=== PATIENT | female | born 1940 | race Caucasian/White ===

== ENCOUNTER 2018-03-08 09:00 | Observation (INO) | payer OTHER ==
--- NOTE | 2018-03-08 09:31 | PDOC ---
History of Present Illness - General Chief Complaint: Palpitations Stated Complaint: PALPITATIONS & BELCHING History Source: Patient Exam Limitations: No Limitations - History of Present Illness Initial Comments: 03/08/18 09:49 78-year-old female history of hypertension hyperlipidemia presents today complaining of palpitations. Patient states she has had intermittent episodes where she feels her heart is racing. She has noticed recently some exertional shortness of breath when walking uphill however denies any chest pain or feeling shortness of breath while walking on flat surfaces are going upstairs. Unsure if she has had any previous stress test states she had seen a zone supervisor firearms over 5 years ago. Denies any current chest pain no leg swelling no leg edema no history of PE or DVT no recent travel denies any fevers chills cough states she is not having the symptoms at this moment. She did take a full aspirin prior to arrival which seems to alleviate her symptoms. Does have a family history of heart disease in a brother who had a mI in his 40s Past History - Past Medical History Allergies/Adverse Reactions: Allergies Allergy/AdvReac Type Severity Reaction Status Date / Time No Known Allergies Allergy Verified 03/08/18 09:12 Home Medications: Ambulatory Orders Aspirin [ASA -] 325 mg PO ONCE 03/08/18 Ezetimibe/Simvastatin [Vytorin 10-20 mg Tablet] 1 each PO DAILY 03/08/18 Lisinopril [Zestril] 40 mg PO DAILY 03/08/18 COPD: No HTN: Yes Hypercholesterolemia: Yes - Suicide/Smoking/Psychosocial Hx Smoking History: Never smoked Have you smoked in the past 12 months: No Information on smoking cessation initiated: No Hx Alcohol Use: No Substance Use Type: None Review of Systems - Review of Systems Constitutional: Yes: Malaise. No: Diaphoresis HEENTM: No: Eye Pain, Blurred Vision, Ear Pain Respiratory: Yes: Shortness of Breath. No: Orthopnea Cardiac (ROS): Yes: Palpitations Musculoskeletal: No: Back Pain, Joint Swelling, Muscle Pain, Muscle Weakness, Joint Stiffness All Other Systems: Reviewed and Negative *Physical Exam - Vital Signs Last Vital Signs Temp Pulse Resp BP Pulse Ox 98.2 F 66 19 137/81 97 03/08/18 09:10 03/08/18 11:30 03/08/18 11:30 03/08/18 11:30 03/08/18 11:30 - Physical Exam General Appearance: Yes: Appropriately Dressed Respiratory/Chest: positive: Lungs Clear, Normal Breath Sounds Cardiovascular: positive: Regular Rhythm, Regular Rate, S1, S2, Murmur ( systolic murmur 2/6) Gastrointestinal/Abdominal: positive: Flat, Soft. negative: Normal Bowel Sounds , Tender Musculoskeletal: positive: Normal Inspection. negative: CVA Tenderness Extremity: positive: Normal Inspection, Normal Range of Motion. 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) Heart Score/ECG Review #1 ECG reviewed & interpreted by me at: 09:31 General ECG Interpretation: Sinus Rhythm, Normal Rate (73), Normal Intervals, No acute ischemic changes ED Treatment Course - LABORATORY CBC & Chemistry Diagram: 03/08/18 09:50 03/08/18 09:50 - ADDITIONAL ORDERS Additional order review: Laboratory Results 03/08/18 03/08/18 09:50 09:50 Sodium 135 L Potassium 4.2 Chloride 104 Carbon Dioxide 23 Anion Gap 8 BUN 22 H Creatinine 0.8 Creat Clearance w eGFR > 60 Random Glucose 104 Calcium 9.4 Total Bilirubin 0.9 AST 31 ALT 27 Alkaline Phosphatase 60 Troponin I < 0.03 Total Protein 7.3 Albumin 4.3 03/08/18 09:50 RBC 4.53 MCV 87.8 MCHC 33.2 RDW 12.7 MPV 9.9 Neutrophils % 65.0 Lymphocytes % 24.9 Monocytes % 6.2 Eosinophils % 2.7 Basophils % 1.2 - RADIOLOGY Radiology Studies Ordered: Category Date Time Status CHEST PA & LAT [RAD] Stat Radiology 03/08/18 09:35 Completed Medical Decision Making - Medical Decision Making 03/08/18 10:15 78-year-old female with palpitations and generalized feeling not well. Differential diagnos irhythmia, anemia, electrolyte abnormality, atypical ACS, hyper or hypothyroid. plan: EKG, chest x-ray,CBCCMP troponin telemetry monitoring Patient took aspirin prior to arrival we'll try to contact her zone supervisor firearms Dr. Jacques will consider admission for observation and dysrhythmia due to the patient's risk factors 03/08/18 10:46 Labs unremarkable, troponin negative, chest x-ray unremarkable. EKG is normal due to the patient's risk factors for heart disease will admit the patient for telemetry observation further cardiac workup and rule out ACS 03/08/18 10:[address] aparicio [phone] dr jacques [phone] *DC/Admit/Observation/Transfer Diagnosis at time of Disposition: Palpitations - Discharge Dispostion Condition at time of disposition: Good Decision to Admit order: Yes Decision to Admit order Date/Time: Decision to Admit Order Category Date Time Status Decision to Admit to Hospital Routine Admission 03/08/18 10:51 Active - Referrals Referrals: Ricardo Aparicio [Primary Care Provider] - - Patient Instructions - Post Discharge Activity
[2018-03-08 09:35] VITALS: BMI 30.7
[2018-03-08 10:15] LABS: BASO % 1.2 % (0-2.0); EOS % 2.7 % (0-4.5); HEMATOCRIT 39.7 % (32.4-45.2); HEMOGLOBIN 13.2 GM/dl (10.7-15.3); LYMPH % 24.9 % (8-40); MCH 29.1 pg (25.7-33.7); MCHC 33.2 g/dl (32.0-36.0); MEAN CELL VOLUME 87.8 fl (80-96); MEAN PLT VOLUME 9.9 fl (7.5-11.1); MONO % 6.2 % (3.8-10.2); PLATELET COUNT 207 K/MM3 (134-434); RBC 4.53 M/mm3 (3.60-5.2); RDW 12.7 % (11.6-15.6); WHITE BLOOD COUNT 6.2 K/mm3 (4.0-10.8)
[2018-03-08 10:24] LABS: ALBUMIN 4.3 g/dl (3.5-5.0); ALK PHOS 60 U/L (32-92); ANION GAP 8 MMOL/L (8-16); BILIRUBIN,TOTAL 0.9 mg/dl (0.2-1.0); BLOOD UREA NITROGEN 22 mg/dl (7-18); CALCIUM 9.4 mg/dl (8.4-10.2); CHLORIDE 104 mmol/L (98-107); CO2 23 mmol/L (22-28); CREATININE 0.8 mg/dl (0.6-1.3); GLUCOSE,RANDOM 104 mg/dl (74-106); POTASSIUM 4.2 mmol/L (3.5-5.1); SGOT/AST 31 U/L (10-42); SGPT/ALT 27 U/L (10-40); SODIUM 135 mmol/L (136-145); TOT PROT 7.3 g/dl (6.4-8.3)
--- NOTE | 2018-03-08 12:10 | HP ---
CHIEF COMPLAINT: Palpitations PCP: Dr. Ricardo Aparicio Cardiology: Dr. Lopez, Anais Gannon HISTORY OF PRESENT ILLNESS: 78 year-old female with a PMH significant for HTN and HLD, presented to the ED with a complaint of palpitations. Patient was watching television in bed early this morning and when she rolled over she began experiencing palpitations and a feeling of anxiety. There was no associated pain, SOB, sweating, or dizziness. The palpitations lasted for about fifteen minutes. She took an aspirin and immediately felt better. Patient advised ED provider she has had some exertional SOB recently, but she denies this at the time of admission. She last had an episode of palpitations three years ago and she had a cardiac workup with Dr. Lopez which was reportedly negative. Patient denies orthopnea, PND, lower extremity edema. ER course was notable for: (1) First troponin neg (2) ECG: not suggestive of acute ischemic event (3) CXR: unremarkable Recent Travel: No PAST MEDICAL HISTORY: Hypertension Hyperlipidemia PAST SURGICAL HISTORY: Right cataract surgery Social History: Smoking: quit 40 years ago Alcohol: no Drugs: no Family History: Father 60 stomach cancer; mother 69 pancreatic cancer ; brother 41 [place]; one brother epilepsy; one brother a&w Allergies No Known Allergies Allergy (Verified 03/08/18 09:12) HOME MEDICATIONS: Home Medications Medication Instructions Recorded Aspirin [ASA -] 325 mg PO ONCE 03/08/18 Ezetimibe/Simvastatin [Vytorin 1 each PO DAILY 03/08/18 10-20 mg Tablet] Lisinopril [Zestril] 40 mg PO DAILY 03/08/18 REVIEW OF SYSTEMS CONSTITUTIONAL: Absent: fever, chills, diaphoresis, generalized weakness, malaise, loss of appetite, weight change HEENT: Absent: rhinorrhea, nasal congestion, throat pain, throat swelling, difficulty swallowing, mouth swelling, ear pain, eye pain, visual changes CARDIOVASCULAR: Absent: chest pain, syncope, palpitations, irregular heart rate, lightheadedness , peripheral edema RESPIRATORY: Absent: cough, shortness of breath, dyspnea with exertion, orthopnea, wheezing, stridor, hemoptysis GASTROINTESTINAL: Absent: abdominal pain, abdominal distension, nausea, vomiting, diarrhea, constipation, melena, hematochezia GENITOURINARY: Absent: dysuria, frequency, urgency, hesitancy, hematuria, flank pain, genital pain MUSCULOSKELETAL: Absent: myalgia, arthralgia, joint swelling, back pain, neck pain SKIN: Absent: rash, itching, pallor HEMATOLOGIC/IMMUNOLOGIC: Absent: easy bleeding, easy bruising, lymphadenopathy, frequent infections ENDOCRINE: Absent: unexplained weight gain, unexplained weight loss, heat intolerance, cold intolerance NEUROLOGIC: Absent: headache, focal weakness or paresthesias, dizziness, unsteady gait, seizure, mental status changes, bladder or bowel incontinence PSYCHIATRIC: Absent: anxiety, depression, suicidal or homicidal ideation, hallucinations. PHYSICAL EXAMINATION Vital Signs Temperature 97.6 F 03/08/18 12:51 Pulse Rate 70 03/08/18 12:51 Respiratory Rate 18 03/08/18 12:51 Blood Pressure 139/90 03/08/18 12:51 O2 Sat by Pulse Oximetry (%) 97 03/08/18 11:30 GENERAL: Awake, alert, and fully oriented, in no acute distress. LUNGS: Breath sounds equal, clear to auscultation bilaterally. No wheezes, and no crackles. No accessory muscle use. HEART: Regular rate and rhythm, +murmur ABDOMEN: Soft, nontender, not distended MUSCULOSKELETAL: Normal range of motion at all joints. No bony deformities or tenderness. No CVA tenderness. UPPER EXTREMITIES: 2+ pulses, warm, well-perfused. No cyanosis. No clubbing. No peripheral edema. LOWER EXTREMITIES: 2+ pulses, warm, well-perfused. No calf tenderness. No peripheral edema. NEUROLOGICAL: Cranial nerves II-XII intact. Normal speech. Laboratory Results - last 24 hr 03/08/18 03/08/18 03/08/18 09:50 09:50 09:50 WBC 6.2 RBC 4.53 Hgb 13.2 Hct 39.7 MCV 87.8 MCH 29.1 MCHC 33.2 RDW 12.7 Plt Count 207 MPV 9.9 Absolute Neuts (auto) 3.9 Neutrophils % 65.0 Lymphocytes % 24.9 Monocytes % 6.2 Eosinophils % 2.7 Basophils % 1.2 Sodium 135 L Potassium 4.2 Chloride 104 Carbon Dioxide 23 Anion Gap 8 BUN 22 H Creatinine 0.8 Creat Clearance w eGFR > 60 Random Glucose 104 Calcium 9.4 Total Bilirubin 0.9 AST 31 ALT 27 Alkaline Phosphatase 60 Troponin I < 0.03 Total Protein 7.3 Albumin 4.3 ASSESSMENT/PLAN 78 year-old female with a PMH significant for HTN and HLD, with a family history of a brother who at age 41 of [place]. Placed on observation for palpitations. Palpitations --initial ECG sinus rhythm --continuous telemetry monitoring --troponins negative x 2, third pending --CXR unremarkable --03/08 Echo: LV hyperdynamic; RV normal; mild to moderate to severe TR; at least moderate , AV area could not be estimated --cardiology consult Hypertension --BP stable --continue lisinopril Hyperlipidemia --continue statin FEN Fluids: PO intake adequate Electrolytes: replete as indicated Nutrition: low sodium; NPO after midnight in case of stress test tomorrow DVT prophylaxis: subq heparin Dispo: continues to require inpatient care. Full code. Visit type - Emergency Visit Emergency Visit: Yes ED Registration Date: 03/08/18 Care time: The patient presented to the Emergency Department on the above date and was hospitalized for further evaluation of their emergent condition. - New Patient This patient is new to me today: Yes Date on this admission: 03/08/18 - Critical Care Critical Care patient: No Hospitalist Screening - Colonoscopy Questionnaire Colonoscopy Questionnaire: Colonoscopy Questionnaire - Patient: 50 - 75 years old and never had a screening colonoscopy: No History of colon or rectal polyps, or CA: No History of IBD, Crohn's disease or UC: No History of abdominal radiation therapy as a child: No - Relative: 1 with colon or rectal CA, or polyps at age 60 or younger: Unknown Colon or rectal CA diagnosed at age 45 or younger: Unknown Multiple relatives with colon or rectal CA: Unknown - Outcome: Screening Result: Negative Screen
[2018-03-08 12:16] LABS: N-TERMINAL BNP 108.35 pg/ml (5-450)
--- NOTE | 2018-03-08 15:41 | ECHO ---
Name: TEREZA MCKEON Exam:Adult Echocardiogram Study Date: 03/08/2018 11:51 AM Age: 78 yrs Reason For Study: PALPITATIONS Height: 62 in Weight: 168 lb BSA: 1.8 m2 MMode/2D Measurements & Calculations IVSd: 0.94 cm Ao root diam: 2.5 cm LVIDd: 4.5 cm LA dimension: 3.3 cm LVIDs: 1.9 cm LVPWd: 0.91 cm EDV(Teich): 94.5 ml LVOT diam: 2.0 cm ESV(Teich): 11.8 ml Doppler Measurements & Calculations MV E max olga: 83.4 cm/sec MVA(VTI): 2.5 cm2 MV A max olga: 128.4 cm/sec MV V2 max: 135.0 cm/sec MV E/A: 0.65 MV max P.3 mmHg MV V2 mean: 77.8 cm/sec MV mean P.8 mmHg MV V2 VTI: 35.4 cm Ao V2 max: 320.3 cm/sec LV V1 max P.9 mmHg Ao max P.1 mmHg LV V1 mean P.9 mmHg Ao V2 mean: 241.9 cm/sec LV V1 max: 121.0 cm/sec Ao mean P.0 mmHg LV V1 mean: 77.4 cm/sec Ao V2 VTI: 76.2 cm LV V1 VTI: 28.2 cm MOMO(I,D): 1.2 cm2 MOMO(V,D): 1.2 cm2 SV(LVOT): 89.2 ml TR max olga: 217.9 cm/sec TR max P.0 mmHg Procedure The study was technically adequate with some images being suboptimal in quality. Left Ventricle Upper septal hypertrophy (sigmoid septum), normal variant. The left ventricle is normal in size. The left ventricle is hyperdynamic. No regional wall motion abnormalities noted. Right Ventricle The right ventricle is normal in size and function. Atria The left atrial size is normal. Mitral Valve There is severe mitral annular calcification. There is mild mitral valve thickening. No significant m itral valve stenosis. There is no mitral regurgitation noted. Tricuspid Valve The tricuspid valve is not well visualized, but is grossly normal. The tricuspid regurgitant jet is eccentrically directed. TR appears at least mild to moderate vs moderate in severity; may be underest imated. There was insufficient TR detected to calculate RV systolic pressure. Aortic Valve There is severe aortic valve thickening. Aortic valve leaflet mobility appears at least moderately re stricted. At least moderate aortic stenosis present. Peak and mean gradients are 35 and 20 mmHg. AV area could not be estimated by continuity equation, due to incomplete doppler recording in the LVOT, and short axis suyapa nimetry tracing was not technically feasible, though the valve appears possibly severe stenosed in short axis images. No aortic regurgitation is present. Pulmonic Valve The pulmonic valve is not well visualized. There is no pulmonic valvular regurgitation. Great Vessels The aortic root is normal size. Normal IVC size and contractility. Pericardium/Pleura There is no pericardial effusion. Interpretation Summary TR appears at least mild to moderate vs moderate in severity; may be underestimated. Aortic valve leaflet mobility appears at least moderately restricted. The study was technically adequate with some images being suboptimal in quality. The left ventricle is hyperdynamic. No regional wall motion abnormalities noted. The right ventricle is normal in size and function. The tricuspid regurgitant jet is eccentrically directed. There was insufficient TR detected to calculate RV systolic pressure. There is severe aortic valve thickening. At least moderate aortic stenosis present. Peak and mean gradients are 35 and 20 mmHg. AV area could not be estimated by continuity equation, due to incomplete doppler recording in the LVOT, and short axis suyapa nimetry tracing was not technically feasible, though the valve appears possibly severe stenosed in short axis images. MD Yifan Lane 03/08/2018 03:41 PM
--- NOTE | 2018-03-08 15:57 | EKG ---
Test Reason : Blood Pressure : / mmHG Vent. Rate : 073 BPM Atrial Rate : 073 BPM P-R Int : 168 ms QRS Dur : 096 ms QT Int : 392 ms P-R-T Axes : 063 -05 055 degrees QTc Int : 431 ms NORMAL SINUS RHYTHM NORMAL ECG WHEN COMPARED WITH ECG OF 27-OCT-1999 18:09, NO SIGNIFICANT CHANGE WAS FOUND Confirmed by Stephanie Nguyễn ([id number]) on 03/08/2018 3:57:44 PM Referred By: KONSTANTIN MULLIGAN Confirmed By:Stephanie Nguyễn
--- NOTE | 2018-03-08 17:23 | CON.CARD ---
Consult Consult Specialty:: Cardiology Reason for Consultation:: palpitations - History of Present Illness Chief Complaint: palpitations History of Present Illness: 78F h/o HTN, HLD p/w palpitations. [place] anxious, racing heart. no chest pain, short of breath, nausea, dizzy, lightheaded, edema. Palpitations lasted 15 min , felt better with aspirin. Had prior episode 3 years ago wit cardiac workup that was reportedly negative, credit support specialist Dr. Lopez. Trop neg x2, CXR and EKG unremarkable. Echo showed hyperdynamic LV, at least moderate , unable to calculate AV area. Of note patient had been told for at least two years that she had a murmur. - History Source History Provided By: Patient Limitations to Obtaining History: No Limitations - Past Medical History Cardio/Vascular: Yes: HTN, Hyperlipdemia - Alcohol/Substance Use Hx Alcohol Use: No - Smoking History Smoking history: Never smoked Have you smoked in the past 12 months: No Home Medications - Allergies Allergies/Adverse Reactions: Allergies Allergy/AdvReac Type Severity Reaction Status Date / Time No Known Allergies Allergy Verified 03/08/18 09:12 - Home Medications Home Medications: Ambulatory Orders Aspirin [ASA -] 325 mg PO ONCE 03/08/18 Ezetimibe/Simvastatin [Vytorin 10-20 mg Tablet] 1 each PO DAILY 03/08/18 Lisinopril [Zestril] 40 mg PO DAILY 03/08/18 Family Disease History - Family Disease History Family History: Unremarkable Review of Systems - Review of Systems Constitutional: reports: No Symptoms Eyes: reports: No Symptoms HENT: reports: No Symptoms Neck: reports: No Symptoms Cardiovascular: reports: Palpitations Respiratory: reports: No Symptoms Gastrointestinal: reports: No Symptoms Genitourinary: reports: No Symptoms Musculoskeletal: reports: No Symptoms Integumentary: reports: No Symptoms Neurological: reports: No Symptoms Endocrine: reports: No Symptoms Hematology/Lymphatic: reports: No Symptoms Psychiatric: reports: Anxiety Vital Signs: Vital Signs Temperature 97.6 F 03/08/18 12:51 Pulse Rate 70 03/08/18 12:51 Respiratory Rate 18 03/08/18 12:51 Blood Pressure 139/90 03/08/18 12:51 O2 Sat by Pulse Oximetry (%) 97 03/08/18 11:30 Constitutional: Yes: Well Nourished, No Distress, Calm Eyes: Yes: Conjunctiva Clear, EOM Intact HENT: Yes: Atraumatic, Normocephalic Neck: Yes: Supple Respiratory: Yes: Regular, CTA Bilaterally Gastrointestinal: Yes: Normal Bowel Sounds, Soft Cardiovascular: Yes: Regular Rate and Rhythm JVD: No Heart Sounds: Yes: S1, S2 Murmur: Yes: Systolic Murmur Peripheral Pulses: 2+ Left Doralis Pedis, 2+ Right Dorsalis Pedis Integumentary: Yes: WNL Neurological: Yes: Alert, Oriented Psychiatric: Yes: Alert, Oriented - Other Data Labs, Other Data: CBC, BMP 03/08/18 09:50 03/08/18 09:50 Troponin, BNP 03/08/18 03/08/18 03/08/18 09:50 09:50 16:00 Troponin I < 0.03 0.03 B-Natriuretic Peptide 108.35 Troponin, BNP 03/08/18 03/08/18 03/08/18 09:50 09:50 16:00 Troponin I < 0.03 0.03 B-Natriuretic Peptide 108.35 Assessment/Plan EKG: normal sinus, no ischemic changes Echo: hyperdynamic LV, RV normal; mild to moderate TR; at least moderate , AV area could not be calculated, visually may be severe 78F h/o HTN, HLD p/w palpitations Palpitations - trop neg x2, unremarkable EKG - no events on tele - monitor on tele overnight, if no events would not recommend further workup as inpatient - patient has outpatient credit support specialist appointment tomorrow, would consider outpatient monitoring if palpitations reoccur Aortic stenosis - at least moderate on echo, due to limited study unable to calculate MOMO - would repeat study as outpatient - unlikely contributing to palpitations HTN - controlled on current meds, continue HLD - continue zetia
[2018-03-08] MEDS: HEPARIN NA (PORCINE) 5,000 UNITS/ML 1ML VIAL SQ SCH (18:12)
[2018-03-09] MEDS: HEPARIN NA (PORCINE) 5,000 UNITS/ML 1ML VIAL SQ SCH ×2 (01:59→09:26)
[2018-03-09 06:45] VITALS: TEMP 98.4
--- NOTE | 2018-03-09 09:00 | DS ---
Physical Exam: SUBJECTIVE: Patient seen and examined OBJECTIVE: Vital Signs Period Temp Pulse Resp BP Sys/Alvarez Pulse Ox Last 24 Hr 97.6 F-98.6 F 64-72 15-19 137-159/64-92 95-100 PHYSICAL EXAM GENERAL: The patient is awake, alert, and fully oriented, in no acute distress. HEAD: Normal with no signs of trauma. EYES: PERRL, extraocular movements intact, sclera anicteric, conjunctiva clear. ENT: Ears normal, nares patent, oropharynx clear without exudates, moist mucous membranes. NECK: Trachea midline, full range of motion, supple. LUNGS: Breath sounds equal, clear to auscultation bilaterally, no wheezes, no crackles, no accessory muscle use. HEART: Regular rate and rhythm, S1, S2 without murmur, rub or gallop. ABDOMEN: Soft, nontender, nondistended, normoactive bowel sounds, no guarding, no rebound, no hepatosplenomegaly, no masses. EXTREMITIES: 2+ pulses, warm, well-perfused, no edema. NEUROLOGICAL: Cranial nerves II through XII grossly intact. Normal speech, gait not observed. PSYCH: Normal mood, normal affect. SKIN: Warm, dry, normal turgor, no rashes or lesions noted. LABS Laboratory Results - last 24 hr 03/08/18 03/08/18 03/08/18 09:50 09:50 09:50 WBC 6.2 RBC 4.53 Hgb 13.2 Hct 39.7 MCV 87.8 MCH 29.1 MCHC 33.2 RDW 12.7 Plt Count 207 MPV 9.9 Absolute Neuts (auto) 3.9 Neutrophils % 65.0 Lymphocytes % 24.9 Monocytes % 6.2 Eosinophils % 2.7 Basophils % 1.2 Sodium 135 L Potassium 4.2 Chloride 104 Carbon Dioxide 23 Anion Gap 8 BUN 22 H Creatinine 0.8 Creat Clearance w eGFR > 60 Random Glucose 104 Calcium 9.4 Magnesium Total Bilirubin 0.9 AST 31 ALT 27 Alkaline Phosphatase 60 Troponin I < 0.03 B-Natriuretic Peptide 108.35 Total Protein 7.3 Albumin 4.3 TSH 3.16 03/08/18 03/08/18 03/08/18 10:00 16:00 22:00 WBC RBC Hgb Hct MCV MCH MCHC RDW Plt Count MPV Absolute Neuts (auto) Neutrophils % Lymphocytes % Monocytes % Eosinophils % Basophils % Sodium Potassium Chloride Carbon Dioxide Anion Gap BUN Creatinine Creat Clearance w eGFR Random Glucose Calcium Magnesium 2.0 Total Bilirubin AST ALT Alkaline Phosphatase Troponin I 0.03 < 0.03 B-Natriuretic Peptide Total Protein Albumin TSH HOSPITAL COURSE: Date of Admission:03/08/18 Date of Discharge: 03/09/18 Pre hospital course 78 year-old female with a PMH significant for HTN and HLD, presented to the ED with a complaint of palpitations. Patient was watching television in bed early this morning and when she rolled over she began experiencing palpitations and a feeling of anxiety. There was no associated pain, SOB, sweating, or dizziness. The palpitations lasted for about fifteen minutes. She took an aspirin and immediately felt better. Patient advised ED provider she has had some exertional SOB recently, but she denies this at the time of admission. She last had an episode of palpitations three years ago and she had a cardiac workup with Dr. Lopez which was reportedly negative. Patient denies orthopnea, PND, lower extremity edema. ER course was notable for: (1) First troponin neg (2) ECG: not suggestive of acute ischemic event (3) CXR: unremarkable Subsequent hospital course Palpitations --troponins negative x 3 --ECG not suggestive of ischemic event --continuous telemetry monitoring, no events --CXR unremarkable -- --seen and evaluated by cardiology Aortic stenosis --03/08 Echo: LV hyperdynamic; RV normal; mild to moderate to severe TR; at least moderate , AV area could not be estimated --needs repeat study as outpatient to better assess AV area --unlikely contributing to palpitations Hypertension --BP stable --continued lisinopril Hyperlipidemia --continued statin Minutes to complete discharge: 35 Discharge Summary Reason For Visit: PALPITATIONS & BELCHING Current Active Problems Palpitations (Acute) Condition: Improved - Instructions Diet, Activity, Other Instructions: It is recommended you follow up with your diesel pile driver operator and primary care provider. Return to the emergency department for any new or worsening symptoms. Referrals: Ricardo Aparicio [Primary Care Provider] - Disposition: HOME - Home Medications Comprehensive Discharge Medication List: Ambulatory Orders Aspirin [ASA -] 325 mg PO ONCE 03/08/18 Ezetimibe/Simvastatin [Vytorin 10-20 mg Tablet] 1 each PO DAILY 03/08/18 Lisinopril [Zestril] 40 mg PO DAILY 03/08/18 This patient is new to me today: No Emergency Visit: Yes ED Registration Date: 03/08/18 Care time: The patient presented to the Emergency Department on the above date and was hospitalized for further evaluation of their emergent condition. Critical Care patient: No - Discharge Referral [facility]erred to [facility] Med P.C[facility] No
[2018-03-09 09:26] VITALS: BP 157/79; PULSE 66
[2018-03-09] MEDS ORDERED: EZETIMIBE 10 MG TABLET (FP) PO SCH (10:00)
[2018-03-09] MEDS ORDERED: PATIENT'S OWN MEDICATION (NON-FORMULARY) (Lisinopril [Zestril] 40 MG) PO SCH (10:00)
[2018-03-09] MEDS ORDERED: LISINOPRIL 20 MG TABLET (FP) PO SCH (10:00)
[2018-03-09] MEDS ORDERED: ATORVASTATIN CA 10 MG TABLET (FP) PO SCH (22:00)
== END 2018-03-09 10:30 | disposition home or self-care (01) ==
LOC: FER 09:00 → FM/S 10:51
PROVIDERS: ADMIT Internal Medicine; ATTEND Nurse Practitioner Acute Care
DX: R00.2 Palpitations (principal); I35.0 Nonrheumatic aortic (valve) stenosis; I10 Essential (primary) hypertension; E78.5 Hyperlipidemia, unspecified; Z79.82 Long term (current) use of aspirin
CPT/HCPCS: 36415; 71046-TC-FY; 80053; 83735; 83880; 84443; 84484; 85025; 93005; 93306-TC; 99285-25; G0378; J1644

== ENCOUNTER 2021-11-09 08:12 | Day surgery (SDC) | payer OTHER ==
[2021-11-04 15:13] VITALS: BMI 29.2
[2021-11-09] MEDS ORDERED: PROPOFOL 20 ML ONE (09:20)
[2021-11-09] MEDS ORDERED: MIDAZOLAM HCL 2 MG/2 ML SINGLE DOSE VIAL ONE (09:20)
[2021-11-09] MEDS ORDERED: DEXAMETHASONE SOD PHOSPHATE 4 MG/1 ML VIAL ONE (09:22)
[2021-11-09] MEDS ORDERED: ONDANSETRON 4 MG/2 ML VIAL ONE (09:22)
[2021-11-09] MEDS ORDERED: LIDOCAINE HCL 2% JELLY (5 ML/TUBE) ONE (09:22)
[2021-11-09] MEDS ORDERED: KETOROLAC TROMETHAMINE 30 MG/1 ML VIAL ONE (09:22)
[2021-11-09] MEDS ORDERED: ceFAZolin SODIUM 1 GM VIAL ONE ×2 (09:22→09:31)
[2021-11-09] MEDS ORDERED: BUPIVACAINE HCL 50 ML ONE (09:32)
[2021-11-09] MEDS ORDERED: TETRACAINE 0.5% OPHTH SOLN 2 ML BOTTLE ONE (09:32)
[2021-11-09] MEDS ORDERED: ERYTHROMYCIN 0.5% OPHTHALMIC OINTMENT 3.5 GM TUBE ONE (09:32)
[2021-11-09] MEDS ORDERED: LIDOCAINE 1%/EPI 1:100000 (20 ML MULTI DOSE VIAL) ONE (09:32)
[2021-11-09] MEDS ORDERED: POVIDONE-IODINE 5% OPHTHALMIC PREP 30 ML SOLUTION ONE (09:34)
[2021-11-09] MEDS ORDERED: ONDANSETRON 4 MG/2 ML VIAL IVPUSH PRN (11:56)
[2021-11-09] MEDS ORDERED: oxyCODONE HCL 5 MG TABLET PO PRN (11:56)
[2021-11-09] MEDS ORDERED: ACETAMINOPHEN 325 MG TABLET (FP) PO PRN (11:56)
[2021-11-09 13:31] VITALS: TEMP 98.1
[2021-11-09 13:36] VITALS: BP 140/76; PULSE 73
== END 2021-11-09 14:50 | disposition home or self-care (01) ==
LOC: FASU 08:12
PROVIDERS: ATTEND Ophthalmology
PROC: 0W020ZZ Alteration of Face, Open Approach (ICD-10-PCS; principal; 2021-11-09 10:10)
PROC: 0W020ZZ Alteration of Face, Open Approach (ICD-10-PCS; 2021-11-09 10:10)
DX: H02.834 Dermatochalasis of left upper eyelid (principal); H02.831 Dermatochalasis of right upper eyelid; H02.402 Unspecified ptosis of left eyelid; E65 Localized adiposity
CPT/HCPCS: 94760

== ENCOUNTER 2024-03-16 20:59 | Emergency (ER) | payer OTHER ==
[2024-03-16] MEDS ORDERED: DOXYCYCLINE HYCLATE 100 MG CAPSULE PO ONE (21:43)
[2024-03-16] MEDS: DOXYCYCLINE HYCLATE 100 MG CAPSULE PO ONE (21:44)
[2024-03-16 21:52] VITALS: BP 165/72; PULSE 64; RESP 18; TEMP 98.2; BMI 29.4
== END 2024-03-16 21:44 | disposition home or self-care (01) ==
LOC: FER 20:59
DX: S40.862A Insect bite (nonvenomous) of left upper arm, initial encounter (principal); W57.XXXA Bitten or stung by nonvenomous insect and other nonvenomous arthropods, initial encounter
CPT/HCPCS: 99283-25